=== PATIENT | male | born 1995 | race Caucasian/White ===

== ENCOUNTER 2023-07-23 19:59 | Emergency (ER) | payer SELFPAY ==
[2023-07-23 20:07] VITALS: BP 132/91
[2023-07-23 20:56] VITALS: BMI 28.2
--- NOTE | 2023-07-23 21:06 | ED.GENMED ---
History of Present Illness
General
Chief Complaint: Suicidal Ideation
Source: patient and family
Exam Limitations: none
Time Seen by Provider: 07/23/23 20:22
Nursing documentation reviewed up to this point in time: agreed with
Travel History
Have you had any contact with someone who has COVID-19?: No
Do you have any symptoms of coronavirus? Fever > 100 degrees, chills, cough, shortness of breath, sore throat, loss of taste or smell, muscle aches, or headache?: No
History of Present Illness
History of Present Illness:
Patient with history of chronic alcoholism and depression, presents to ED secondary to continual symptoms of depression with lack of desire to live, which in turn has caused patient to continue to drink alcohol. Denies homicidal ideation. Denies
recent illness. Denies fever or chills. Denies chest pain. Denies shortness of breath. Denies abdominal pain. Denies nausea or vomiting. Patient does report having received inpatient alcohol rehab treatment earlier this year, and has been
taking medications for depression, without improvement in symptoms.
Review of Systems
Review of Systems
Allergies reviewed?: Yes
All Other Systems: ROS reviewed and negative except as documented in HPI and ROS
Constitutional: Reports no symptoms
EENT: Reports no symptoms
Respiratory: Reports no symptoms
Cardiac: Reports no symptoms
ABD/GI: Reports no symptoms
: Reports no symptoms
Musculoskeletal: Reports no symptoms
Skin: Reports no symptoms
Neurological: Reports no symptoms
Psychiatric: Reports depression, suicidal and other (alcoholism)
Phy Exam
Physical Exam
Physical Exam:
Physical Exam
General: no apparent distress, not acutely ill. afebrile
Head: nc/at. eomi
Neck: supple. no meningeal signs.
Heart: s1/s2 regular rate and rhythm, no murmur. equal radial pulses.
Lungs: no acute respiratory distress. clear bilaterally
Abdomen: normal bowel sounds. not tender.
Neuro: alert and oriented. no focal neurological deficits
Skin: no rash
Psychiatric: well kept. interactive and cooperative. anxious appearing
Extremities: no edema. no calf tenderness.
Course
Orders/Labs/Results
Orders:
Orders
07/23/23 20:18
1:1 Observation - Suicide/ Violent Behavior As Directed
07/23/23 20:55
Crisis Consult Urgent
Reason for Consult: suicidal ideation
07/23/23 21:04
Electrocardiogram (*1) Urgent
Reason for Study: QTc Monitoring
EKG- Treatment ONCE
0.9% Sodium Chloride 1000 ml [Nss] 1,000 ml IV BOLUS
Lorazepam [Ativan] 1 mg IV NOW STA
Pantoprazole [Protonix IV] 40 mg IV NOW STA
07/23/23 21:08
Acetaminophen Urgent
Alcohol Urgent
Complete Blood Count/No Diff Urgent
Comprehensive Metabolic Panel Urgent
Magnesium Urgent
Salicylate Urgent
07/23/23 21:20
Urine Drug Abuse Screen Urgent
Date Specimen was Collected: 07/23/23
Time Specimen was Collected: 21:07
07/23/23 22:35
Lorazepam [Ativan] 1 mg IV NOW STA
07/24/23 05:11
Alcohol Urgent
Abnormal Lab Results
07/23/23
21:08
Chloride 108 H mmol/L
(98-107)
BUN 7 L mg/dl
(9-20)
ALT 52 H U/L
(0-50)
Salicylates < 1.0 L mg/dl
(2.0-20.0)
Acetaminophen < 10 L ug/ml
(10-30)
07/23/23 21:08
07/23/23 21:08
Vital Signs
Initial and Last Documented VS:
Initial Vital Signs
Temp Pulse Resp BP Pulse Ox
98.6 F 113 18 132/91 97
07/23/23 20:07 07/23/23 20:07 07/23/23 20:07 07/23/23 20:07 07/23/23 20:07
Last Documented Vital Signs
Temp Pulse Resp BP Pulse Ox
98.6 F 73 18 122/81 96
07/23/23 20:07 07/24/23 05:30 07/24/23 05:30 07/24/23 05:30 07/24/23 05:30
MDM/Problems Addressed
MDM/Problems Addressed:
Alcohol level to be repeated and if alcohol level < 100, will be assessed by [facility] for likely in-patient evaluation/treatment, due to alcoholism and depression.
*EKG
Interpreted by ED Provider?: Yes
EKG Intrepretation Date: 07/23/23
Heart Rate: 112
Rate: tachycardiac
Rhythm: sinus
[place]: normal axis
Interval: normal interval
QRS Pattern: normal QRS
*Critical Care Note
Total Time (30-74mins, 75-104mins- exclusive of procedures): Not Applicable
ED Attending Note
-
Portions of this chart may have been created with voice recognition software.� Occasional wrong word or��sound alike� substitutions may have occurred due to the inherent limitations of voice recognition software.
Discharge Plan
Departure
Patient Disposition: Home (Routine Discharge)
Date of Disposition: 07/24/23
Time of Disposition: 10:04
Patient with high blood pressure during this ER visit?: No
Condition: Good
Covid-19: Not Applicable
Discharge Problem:
Alcohol abuse
Instructions: Depression, Adult (DC)
Prescriptions:
No Action
Unobtainable
0
Referrals:
UNKNOWN - PT NOT,INTERVIEWE [Family Provider] -
Interventions
Interventions:
*Risk Screen - Suicide Last Done: 07/23/23 20:16
*General Assessment Last Done: 07/23/23 21:37
*Neglect/Abuse Screening Last Done: 07/23/23 21:37
ED- Fall Risk Assessment Last Done: 07/23/23 21:37
*ED COVID-19 Vaccine History Last Done: 07/23/23 20:56
*Nursing Disposition Last Done: 07/24/23 10:31
ED-Psychological Assessment Last Done: 07/23/23 21:37
Discharge Date and Time
Discharge Date/Time: 07/24/23 10:33
Print Language: [place]
[2023-07-23 21:14] LABS: Hematocrit 46.3 % (39.0-52.0); Hemoglobin 16.8 g/dL (13.0-18.0); Mean Corp Hgb Conc. 36.3 g/dL (33.0-37.0); Mean Corpuscular Hgb 30.7 pg (27.0-31.0); Mean Corpuscular Volume 84.5 fL (80.0-94.0); Mean Platelet Volume 8.4 fL (7.4-10.4); Platelet Count 391 10^3/uL (130-400); Red Blood Cell Count 5.48 10^6/uL (4.70-6.10); Red Cell Dist. Width 13.4 % (11.5-14.5); White Blood Cell Count 10.7 10^3/uL (4.8-10.8)
[2023-07-23] MEDS: ATIVAN 1 MG IV ×2 (21:30→22:39)
[2023-07-23] MEDS: NSS 1000 IV (21:30)
[2023-07-23] MEDS: PROTONIX IV 40 MG IV (21:32)
[2023-07-23 21:40] LABS: ALT (SGPT) 52 U/L (0-50); AST (SGOT) 44 U/L (17-59); Albumin 4.5 g/dl (3.5-5.0); Alkaline Phosphatase 73 U/L (38-126); Blood Urea Nitrogen 7 mg/dl (9-20); Calcium 9.5 mg/dl (8.4-10.2); Carbon Dioxide 23 mmol/L (22-30); Chloride 108 mmol/L (98-107); Estimated Creatinine Clearance 96 ml/min; Glucose 93 mg/dl (70-99); Magnesium 2.2 mg/dl (1.6-2.3); Potassium 4.4 mmol/L (3.5-5.1); Sodium 145 mmol/L (135-145); Total Protein 7.9 g/dl (6.3-8.2); eGFR > 60.00
[2023-07-23 21:46] LABS: Amphetamines Negative (Negative); Barbiturates Negative (Negative); Benzodiazepines Negative (Negative); Buprenorphine Negative (Negative); Cocaine Negative (Negative); Marijuana Negative (Negative); Methadone Negative (Negative); Methamphetamines Negative (Negative); Opiates Negative (Negative); Phencyclidine Negative (Negative); Tricyclic Antidepressants Negative (Negative)
[2023-07-23 21:50] LABS: Acetaminophen < 10 ug/ml (10-30); Alcohol 276 mg/dl; Salicylate < 1.0 mg/dl (2.0-20.0)
[2023-07-24 05:30] VITALS: BP 122/81
[2023-07-24 05:44] LABS: Alcohol 30 mg/dl
== END 2023-07-24 10:33 | disposition home or self-care (01) ==
LOC: EMR 19:59
PROVIDERS: EMERGENCY PHYSICIAN Emergency Medicine
DX: F10.10 Alcohol abuse, uncomplicated (principal); F32.A Depression, unspecified
CPT/HCPCS: 99285; 96374; 96375; 96376; 96361; 80053; 80143; 80179; 80306; 82077; 83735; 85027; 93005